=== PATIENT | male | born 1935 | race Caucasian/White ===

== ENCOUNTER 2021-03-31 13:31 | Inpatient (IN) | payer OTHER, BC ==
[~2021-03-31] VITALS: Ht 199.4 cm; Wt 90.4 kg
--- NOTE | ~2021-03-31 | HC ---
[facility] [place] [address] CONSULTATION Name: ROBERTA PORRSA Room #: 517-A [facility] IN .[place].#: [id number] Admission: 03/31/21 Attend Phys: Blossom Franks MD Discharge: Date of : 34 Report #: [id number] THIS REPORT FOR: cc: FAM - Family physician unknown FAM - Family physician unknown Dwayne Sears MD ~ DATE OF SERVICE: 04/11/2021 CHIEF COMPLAINT: Sacral-gluteal pressure injury. HISTORY OF PRESENT ILLNESS: This is an 86-year-old male patient, who was admitted to the geriatric-psych unit with behavioral disturbance. He is not able to provide any information about himself. I have been asked to see him with regard to wound care. PAST MEDICAL HISTORY: Positive for dementia with behavioral disturbance, hypertension and acute on chronic renal failure. MEDICATIONS: Include acetaminophen, benzocaine, ondansetron, ropinirole, lorazepam, nystatin, olanzapine, pantoprazole, hydroxyzine. ALLERGIES: No known drug allergies. SOCIAL HISTORY: Unknown. FAMILY HISTORY: Unknown. REVIEW OF SYSTEMS: Not obtainable due to the patient's level of dementia. PHYSICAL EXAMINATION: VITAL SIGNS: At this time include temperature 96.5, pulse 66, respiratory rate 14, blood pressure 118/72. GENERAL: This is a chronically ill-appearing male patient, who appears to be in no distress. HEENT: Head normocephalic. Nose and throat are clear. LUNGS: Diminished. HEART: Regular rhythm. ABDOMEN: Soft. EXTREMITIES: Examination of the sacral-gluteal region demonstrates a deep tissue injury to the sacral-gluteal region. It is not currently open. CLINICAL IMPRESSION: 1. Deep tissue injury, sacral-gluteal region. 2. Dementia with aggressive behavior. 3. Parkinson's disease. 3. History of subarachnoid hemorrhage. [facility] [address] [place] [address] CONSULTATION Name: ROBERTA PORRAS Room #: 517-A [facility] IN .[place].#: [id number] Admission: 03/31/21 Attend Phys: Blossom Franks MD Discharge: Date of : 34 Report #: [id number] 4. Generalized debility. RECOMMENDATIONS: We will recommend barrier cream and otherwise be left open to air. He will need frequent turns and repositioning every 2 hours and offloading as able. We will recommend a waffle cushion while he is in the chair. Continue with medical management of other underlying medical issues. I appreciate being asked to see him in consultation. By: [id number] Dwayne Sears MD /nt
[2021-03-31] MEDS ORDERED: CARBIDOPA-LEVO1 EAC2 PO (16:42)
[2021-03-31] MEDS ORDERED: BUSPIRONE HCL5 MG PO (16:42)
[2021-03-31] MEDS ORDERED: HYDROCHLOROTH12.5 M2 PO (16:43)
[2021-03-31] MEDS ORDERED: DIFLUCAN100 MG PO (16:43)
[2021-03-31] MEDS ORDERED: HYDROXYZINE HCL25 M2 PO (16:44)
[2021-03-31] MEDS ORDERED: NYSTATIN1000000 UN TOP (16:44)
[2021-03-31] MEDS ORDERED: REQUIP 0.25 M0.25 MG PO (16:45)
--- NOTE | 2021-04-01 01:51 | NUR ---
DUSTIN WAS ADMITTED TO [facility] THE CARE OF DR. TRUJILLO. HE IS ALERT . HE DENIES PAINS. SKIN ASSESSMENT DONE NO OPEN AREAS NOTED. REDNESS AROUND THER GROIN AREA. VITAL SIGN STABLE AT 97.5, 143/87,98%, 88, 16. HE DENIES PAINS, SI/AVH/HI.HE IS INCONTINET OF BOWEL AND BLADDER. NURSE PROVIDED ANNEMARIE CARE ON ARRIVAL. ADMIT MEDS ARE VERIFIED. LUNGS ARE CLEAR , BS ACTIVE X 4 QUADS. LAST BM IS 03/31/21. CALL TO THE HOSPITALIST AND CONSULT ORDER IN PLACE. DUSTIN IS SLEEPING AT THIS TIME. BED IS LOW ALARMED AND LOCKED. PT WT IS 199.4LBS. Q12 MINUTES CHECKS IN PLACE. CONSENT TO TREAT IS OBTAINED FROM THE . CONTINUE CARE AND MONITOR.
[2021-04-01 08:00] VITALS: BP 97/63
[2021-04-01 09:31] VITALS: BP 118/72
--- NOTE | 2021-04-01 10:44 | NUR ---
1045 RESUMMED CARE FROM OVERNIGHT SHIFT THIS AM, PATIENT IN ROOM ASLEEP. WHILE GETTING VITALS PATIENTS BP WAS 97/63; I RETOOK THE BP MANUALLY AND IT WAS 118/72. PATIENTS O2 SAT WAS 70 I DID A STERNUM RUB ON PATIENTS CHEST HE DID NOT FLINCH. WE PUT PATIENT O2 ON THE PATIENT AT 1.5 LITERS AND HIS O2 CAME UP TO 96. PATIENTS PUPILS WERE DILATED WE THEN TRANSFERRED THE PATIENT TO THE CANDY CHAIR. WE ROLLED TO DAY ROOM SO WE CAN MONITOR HIM MORE CLOSELY. AFTER DISCONNECTING THE OXYGEN PATIENTS 02 STAYED IN THE 90'S PATIENT STILL IS SLEEPING IN DAY ROOM. I TOLD RUBEN LUO ABOUT THE PATIENT THIS MORNING I HELD THE AM AND NOON MEDICATION DUE TO PATIENTS BEING SEDATED. PATIENTS ABDOMEN SOFT BOWEL SOUNDS PRESENT, PATIENTS LUNGS CLEAR. PATIENT FINALLY WOKE UP SITTING QUIET WILL CONTINUE TO MONITOR PATIENT FOR SAFETY AND BEHAVIORS. PATIENTS ABDOMEN SOFT BOWEL SOUNDS PRESENT PATIENTS LUNCHES CLEAR TOOK AAP ABDOMEN SOFT BOWEL SOUNDS PRESENT. PATIENTS LUNGS CLEAR PATIENT WAS UNABLE TO TAKE ABOUT SI/HI/AH/VH THIS AM DUE TO BEING SEDATED. WILL CONTINUAL TO MONITOR FOR BEHAVIORS AND SAFETY
[2021-04-01 13:02] LABS: CHOLESTEROL 196 mg/dL (<200); HDL CHOLESTEROL 31 mg/dL (>40); LDL CHOLESTEROL 127 mg/dL (<100); TC:HDL 6.3 Ratio (Not establshd); TRIGLYCERIDE 192 mg/dL (<150); VLDL 38 mg/dL (<40)
[2021-04-01 13:14] LABS: ABSOLUTE NEUTROPHILS 3.8 thou/uL (1.4-8.2); BASOPHILS 0.6 % (0.0-2.0); HEMATOCRIT 45.9 % (42.0-52.0); HEMOGLOBIN 15.3 gm/dL (14.0-18.0); MCH 29.2 pg (26.0-34.0); MCHC 33.4 g/dL (28.0-37.0); MCV 87.7 fL (80.0-100.0); MONOCYTES 9.8 % (1.0-8.0); PLATELET COUNT 272 thou/uL (150-400); POLYS 62.6 % (36.0-66.0); RBC 5.24 mil/uL (4.50-6.00); RDW 13.7 % (10.5-14.5)
[2021-04-01 13:16] LABS: CALCIUM 9.1 mg/dL (8.5-10.1); CREATININE 1.7 mg/dL (0.7-1.3); POTASSIUM 3.7 mmol/L (3.5-5.1)
[2021-04-01 13:23] LABS: ALBUMIN 3.7 g/dL (3.4-5.0); TOTAL BILIRUBIN 0.9 mg/dL (0.2-1.0); TOTAL PROTEIN 7.5 g/dL (6.4-8.2)
[2021-04-01 13:26] LABS: FOLIC ACID 10.5 ng/mL (8.6-58.9)
[2021-04-01 16:01] VITALS: BP 118/72
[2021-04-01 19:17] VITALS: BP 111/73
--- NOTE | 2021-04-02 02:46 | NUR ---
04-01-21 CARE TRANSFERRED 1899 OBSERVED PT RESTING IN RECLINER WITH EYES CLOSED IN DAY ROOM. LATER PT EASILY AWAKEN TO VOICE, PT DROWSY, CALM AND COOPERATIVE. PT VSS, RR EVEN AND NONLABORED ON RA, PT DENIES PAIN AND NO S/S OF PAIN OBSERVED. PT DENIES SI/HI AND NO SI/HI BEHAVIORS NOTED. PT CONFUSED AND REPORTED HE WAS MEETING HIS LATER. PT HAS REMAINED CALM AND COOPERATIVE. LATER PT ASSISTED, HEAVY BRIEF YELLOW URINE, NOTED REDNESS IN PERIAREA, CLEANED WITH SOAP AND WATER, BARRIER CREAM APPLIED. PT BED WAS ADJUSTED FOR COMFORT, LOWEST POSITION, LOCKED AND ALARM ON. LATER PT RESTLESS AND PT WAS BROUGHT TO DAY ROOM IN RECLINER WITH CHAIR ALARM ON. PT WILL CONTINUE TO BE MONITOR PER [facility] PROTOCOL.
[2021-04-02 05:36] LABS: GLYCOHEMOGLOBIN (HGB A1C) 6.3 % (4.8-5.6)
[2021-04-02 09:10] VITALS: BP 128/80
--- NOTE | 2021-04-02 14:17 | NUR ---
SILVESTRE spoke with pt's and DPOA Katerina concerning pt's background hx. She said that pt and she have been 63 years. 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 Pt does have [place] benefits. Pt's also notes that he has a strong josue in [place]. Pt currently lives with his , but she has identified a few options for placement should the be needed. Her ideal is for pt to return home if he can be managed there, but she noted several times that she wants to do whatever is best for the pt. She gave a verbal okay for both Yumiko and Rahat to receive information. SILVESTRE advised there may be some information staff cannot give them as she is pt's current dpoa, and also they will not be able to take decision making from them; they must take advisement from Katerina. She said she understood. She asked that pt's welcome email be sent to both Rahat at [email or web address] and candie at [email or web address]. SILVESTRE emailed a [facility] welcome to both people. SILVESTRE team will continue to follow pt during his stay on this unit.
--- NOTE | 2021-04-02 18:28 | NUR ---
SITTING IN DAYROOM IN [facility] UPON INITIAL ASSESSMENT THIS AM-STARES INTENTLY AT THIS NURSE DURING AM ASSESSMENT BUT OFFERS FEW VERBAL RESPONSES-WHEN DOES RESPOND DIFFICULT TO UNDERSTAND SPEECH IS SOFT,MUMBLED.DID EAT BREAKFAST WITH ASSIST AND TAKES PO MEDS CRUSHED IN PUDDING. [id number] FACIAL EXPRESSION-VERY RESTLESS AFTER BREAKFAST DESPITE INCONTINENT CARE AND ADMINISTRATION OF PO TYLENOL IN CASE EXPERIENCING PAIN-PROVIDED SENSORY BRIDGET AND BALL AND SENSORY PILLOW TO OCCUPY HANDS-PSYCHOMOTOR AGITATION-DID BEAM DYER OPERATOR SENSORY OBJECTS BRIEFLY-ATTEMPTED TO STAND SEVERAL TIMES-REQUIRES MAX ASSIST X3 NURSES TO STAND-HOWEVER IS INSISTING THAT HE IS "GOING" BEGAN TO STRIKE OUT AT DENTAL SERVICE TECHNICIAN'S WHO WERE ATTEMPTING TO ASSIST HIM BACK TO SITTING POSITION IN [id number] TO GRAB,PINCH AND KICK AT STAFF-ATIVAN 0.5MG GIVEN IM IN RIGHT DELTOID AT 1100- WAS NOTABLY LESS RESTLESS AFTER MATIVAN ADMINISTRATION-ABLE TO LOOK AT NEWSPAPER AND LISTEN TO MUSIC -ATE APPROX 75 PERCENT OF LUNCH. DURING 1300 INCONTINENT CARE FOUND TO HAVE BEEN INCONTINENT OF LARGE AMOUNT SOFT LIGHT BROWN STOOL-COMBATIVE WITH INCONTINENT CARE-REQUIRING ASSIST X 4 STAFF TO CLEANSE BM OFF OF TORSO,LEGS,BACK ETC. SETTLED IN BED FOR PM NAP HAD NO SLEEP LAST NIGHT -AT 1530-ALERTED BY DENTAL SERVICE TECHNICIAN THAT VEARL WAS SOMULENT AND DID NOT INITIALLY RESPOND TO VERBAL COMMAND-REQUIRED STERNAL RUB. WAS ALERT WITH EYES OPEN LYING IN BED TAKING OFF SICKS WHEN THIS NURSE ENTERED ROOM TO ASSESS. MUMBLING INCOHERENTLY TO SELF. DENIES PAIN. SKIN WARM/DRY. 02 SAT 97 PERCENT ON RA-BP 144/70-P68 R-12. DARIO. GRIBS STRONG EQUAL BILAT, THIS NURSE AT BEDSIDE [id number] TO ASSESS FOR APNIC EPISODES OR ANY NEUROLOGIC CHANGES. DR. LY CONTACTED RE ABOVE-O RECEIVED FOR CT OF HRAD. CONTINUES HIGH FALLS RISK
[2021-04-02 19:34] VITALS: BP 130/74
[2021-04-02 20:00] VITALS: BP 130/74
--- NOTE | 2021-04-03 00:02 | NUR ---
PATINET CARE WAS RESUMED AT 1900 AND HE WAS AT [facility] DINING AREA . HE IS ALERT AND UNABLE TO VERBALIZE HIS NEEDS. HE DENIES PAINS. NO SI/AVH/HI NOTED AT THIS TIME. HE IS INCONTINIET OF BOWEL AND BLADDER. LUNGS ARE CLEAR BS ACTIVE 4 X QUADS. MEDS WERE GIVEN IN APPLE SAUCE. ANNEMARIE CARE WAS PROVIDED AND HE IS RESTING IN BED. ALARM IS ACTIVATED, BED IS LOW, LOCKED AND Q 12MINUES CHECKES IS ONGOING. CONTINUE CARE AND MONITOR.
[2021-04-03 05:43] LABS: ABSOLUTE NEUTROPHILS 3.7 thou/uL (1.4-8.2); BASOPHILS 0.5 % (0.0-2.0); EOSINOPHILS 2.7 % (0.0-3.0); HEMOGLOBIN 13.9 gm/dL (14.0-18.0); LYMPHOCYTES 25.5 % (24.0-44.0); MCH 29.5 pg (26.0-34.0); MCHC 33.8 g/dL (28.0-37.0); MCV 87.4 fL (80.0-100.0); MONOCYTES 13.3 % (1.0-8.0); PLATELET COUNT 246 thou/uL (150-400); RDW 13.7 % (10.5-14.5); WBC 6.3 thou/uL (4.0-11.0)
[2021-04-03 05:50] LABS: CALCIUM 8.9 mg/dL (8.5-10.1); CREATININE 1.9 mg/dL (0.7-1.3); MAGNESIUM 2.2 mg/dL (1.8-2.4); POTASSIUM 3.2 mmol/L (3.5-5.1)
[2021-04-03 08:43] VITALS: BP 107/55
[2021-04-03 08:49] VITALS: BP 107/55
--- NOTE | 2021-04-03 10:03 | NUR ---
New admit to [facility] with dementia and agressive behavior. Hx Parkinson, subarachnoid hemorrhage, dementia. Eating 90-100% of most meals so far. Wt status appropriate. Note triglycerides 192, LDL 127, HDL 31. A1C is 6.3, B12 416, folate wnl. Otherwise low nutrition risk and will follow intake and wt trends while admitted.
--- NOTE | 2021-04-03 12:41 | NUR ---
1248 RESUMMED CARE FROM OVERNIGHT SHIFT THIS AM, PATIENT IN ROOM SLEEPING DEEPLY. PATIENT DID NOT RESPOND TO ME TRYING TO GET UP PATIENT DID NOT EAT HIS BREAKFAST. I DID NOT GIVE HIM HIS AM MEDICATION UNTIL 1115 AM, DR RAMIREZ CHANGED HIS SEROQUEL TO LATER IN THE DAY AND HS. PATIENTS ABDOMEN SOFT BOWEL SOUNDS PATIENTS LUNGS CLEAR. PATIENT UNABLE TO TELL ME ABOUT SI/HI/AH/VH DUE TO COGNIIVE DO. PATIENT SLEEPING ON AND OFF DURING SHIFT NON VERBAL WITH STAFF. WILL CONTINUE TO MONITOR PATIENT FOR SAFETY AND BEHAVIORS.
--- NOTE | 2021-04-03 16:58 | NUR ---
@[address] Daniel participated in a phone meeting with the Pt , Katerina Mehta, . An update on the Pt was given Medications was discussed. Dr. Goldstein provided education on dementia progression. Katerina informed that the Pt was given ativan before and it had and over sedating affect on the Pt prior. Dr. Daniel informed that we would call the family back in 24hr with update on the Pt's progress. This will give time for better assessment of the Pt's condition and to make a determination if Pt in need of hospice house. This was explained to Katerina. A zoom visit was scheduled for 04/04/2021 @ 1100. Silva will continue to follow
[2021-04-03 19:49] VITALS: BP 161/78
[2021-04-03 20:00] VITALS: BP 161/78
--- NOTE | 2021-04-03 22:11 | NUR ---
PATIENT IS ALERT AND ORIENTED TO SELF. MAX ASSIT WITH CARE.HE IS INCONTINET F BOWEL AND BALDDER. ANNEMARIE-CARE IS PROVIDED. ABD IS SOFT MODERATE SIZED AND NNE TENDER. HE DENIES PAINS. MEDS ARE GIVEN IN APPLE SAUCE. CALL FROM SPOUSE AND PATIENT SPOKE WITH HER. HE AMBULATES WITH CANDY-CHAIR. BED IS LOW, LOCK AND ALARMED. LUNGS ARE CLEAR . NO BEHAVOIR NOTED THIS SHIFT. Q 12MINUTES CHECKES IN ONGOING, CONTINUE CARE AND MONITOR.
[2021-04-04 09:26] VITALS: BP 135/67
--- NOTE | 2021-04-04 13:05 | NUR ---
Alert and orientated to self only. Denies SI/HI. Able to read names out of magazine spontaneously. Calm and cooperative all AM and initially cooperative when changing brief but became resistant when he needed to be changed 2nd time right after the first. Able to stand with assistance and walk approximately 10 steps, gait unsteady. Saw family over zoom and stated son looked like his father, no other conversation with family. Became threatening and slightly combative at lunch wanting to stand. Compliant with meds crushed in apple sauce. Now dozing off at times. Breath sounds clear. Reg HR auscultated. Color pink with brisk capillary refill and palpable peripheral pulses. No edema. Large, soft brown stool per brief X 2. Active bowel sounds over soft, rounded abdomen. Buttocks and inguinal spaces slightly reddened. Cleaned and nystatin, barrier cream applied. Several scrapes on shins, no s/o infection.
--- NOTE | 2021-04-04 14:28 | NUR ---
Pt participated in a family visit via zoom. The visit was about 10 mins. Pt did not seeam to recognize his family. Pt believed it was his mother and father, however the family on the zoom was his and children. Visit was ended due to Pt needed toileting.
--- NOTE | 2021-04-04 15:34 | NUR ---
SILVESTRE and Dr. Daniel participated in a phone call with the Pt family. Katerina, Rahat, and Yumiko were on the phone call. Dr. Daniel gave a recommendation for memory care. The family was asked to provide at least 3 facilities they would like a referral sent to. Medications were also discussed. Katerina had questions concerning Pt recieving physical therapy. Dr. Cleaning explained that at this time the Pt's cognitive impairment would prevent him from participating however PT can be ordered if Pt's cognition improves. The family had no further questions or concerns. SILVESTRE will continue to follow.
[2021-04-04 18:35] VITALS: BP 164/84
[2021-04-04 19:43] VITALS: BP 155/73
--- NOTE | 2021-04-04 22:25 | NUR ---
PATIENT CARE WAS RESUMED AT 1900. HE WAS SITTING ON CANDY-CHAIR IN THE HALLWAY. HE IS ALERT AND ORIENTED. HE SPOKE ON THE PHONE WITH THE THIS EVENING. TOOK HIS MED IN APPLE SAUCE. HE DENIES PAINS,SI/AVH/HI. BOWEL SOUND IS ACTIVE X 4 QUADS.PATIENT IS IN BED AT THIS TIME AND BED IS LOW, ALARMED, LOCKED.HE IS INCONTINENT OF BOWEL AND BLADDER.YELLOW SOCK AND TOP ARE ON.MAX ASSIST WITH TRANSFER AND ANNEMARIE-CARE. Q 12MINS CHECK ONGOING AND CONTINUE TO MONITOR.
[2021-04-05 09:06] VITALS: BP 136/55
--- NOTE | 2021-04-05 19:56 | NUR ---
HAS BEEN VISIBLE IN DAYROOM SITTING IN GERICHAIR-MINIMALLY VERBAL-AFFECT CONSTRICTED -NOT RESTLESS NOTED ON PREVIOUS SHIFTS-DID BECOME MILDLY AGITATED WITH INCONTINENT CARE-REQUIRES 2-3 HE GRABS AT BRIEF AND WILL NOT LET GO. ATTEMPTS TO FEED SELF BUT DOES REQUIRE ASSIST. TRANSFERS AND AMBULATES WITH ASSIST OF 1-2 STAFF-GAIT VERY UNSTEADY. NO NOTED OR REPORTED PAIN
[2021-04-05 20:10] VITALS: BP 115/70
--- NOTE | 2021-04-06 00:24 | NUR ---
PATIENT CARE RESUMED AT 1900, PATIENT IN GERICHAIR IN DAY ROOM AT THAT TIME. MEDS GIVEN CRUSHED IN ICE CREAM WITHOUT DIFFICULTY. PATIENT ASSISTED TO BED X 2 ASSIST WITH TRANSFER AND PERICARE, DID HAVE SOME RESISTANCE TO CARE THOUGH MANAGEABLE. PATIENT IS MINIMALLY VERBAL WITH ASSESSMENT QUESTIONS AND DOES NOT ANSWER APPROPRIATELY. PATIENT CURRENTLY LYING IN BED WITH EYES CLOSED, RESTING QUIETLY.
--- NOTE | 2021-04-06 08:28 | NUR ---
RT Progress Note- Paul has been present in the milieu each day since his admission. He keeps to himself, and does not communicate much, but is observed to make eye contact and listen closely when interacted with directly. Paul has been able to be present in most recreation therapy groups as a passive participant and has not displayed any agitated or aggressive behaviors while doing so. RT team will continue to encourage presence and progress towards goals.
[2021-04-06 09:21] VITALS: BP 110/63
--- NOTE | 2021-04-06 10:38 | NUR ---
Referral faxed to the Following: [facility]
--- NOTE | 2021-04-06 14:35 | NUR ---
Assumed pt care at 0700. Pt was awake in the day room. Pt was oriented to self. Gordyie si/hi. pt is on a scheduled tylenol. Pt took meds crushed in pudding, no difficulty noted. ambulates with a Briseida chair. pt was assisted with all meals. Pt was calm cooperative with care. INCONTINENT X3 AT THIS TIME. No bowel movement noted at this time. No sign of acute distress noted. Pt is currently seated in the day room. WILL CONTINUE TO MONITOR.
[2021-04-06 16:21] VITALS: BP 108/70
[2021-04-06 19:50] VITALS: BP 108/70
--- NOTE | 2021-04-07 02:10 | NUR ---
PATIENT CARE WAS RESUMED AT 1900. HE IS ALERT AND WAS SITTING IN THE HALLWAY O RECLINER. HE SPOKE WITH SPOSE THIS SHIFT. DENIES PAINS,SI/AVH/HI. HE TOOK HIS MEDS IN A PUDDING.VERBALIZES SOME DISCOMFORT.HE AMBULATES WITH CANDY-CHAIR, SHE NEED ASSISTANCE WITH ANNEMARIE-CARE. LUNGS ARE CLEAR BS ACTIVE X 4 QUADS. INCONTINET OF BOWEL AND BLADDER. BED IS LOW, LOCKED AND ALARMED. Q 12 MINUTES CHECK IS ONGOING.
[2021-04-07 09:37] VITALS: BP 127/64
--- NOTE | 2021-04-07 17:30 | NUR ---
SW followed up on the referrals: [facility]- declined due to no beds [facility]- cant meet need due to Pt's behaviors and they dont have a locked unit. [facility]- Left a message for admissions and DON. no call back as of this note. [facility]-recieved a call from [facility], . SW returned call and left a message. No call back as of this note [facility]- will accept the Pt. However they have hesitations due to the family only wanting temprary placement until the are able to get placement in [place], [place]. SW will continue to follow up.
[2021-04-07 19:18] VITALS: BP 125/72
[2021-04-07 20:00] VITALS: BP 125/72
[2021-04-08 09:41] VITALS: BP 131/60
--- NOTE | 2021-04-08 09:52 | NUR ---
Assumed pt care at 0700. pt was in the day room resting. Oriented to self, confused. Lungs clear on auscultation, active bowel sound. Calm and cooperative with care. No sign of si/hi noted, pt is on a scheduled pain meds. No sign acute distress noted upon assessments. Took meds crushed in ice cream, no difficulty noted. AMbulates with a Briseida chair. pt is a moderate to mAX assist with cares. At this time pt is in the day room awake. Will continue to monitor pt.
[2021-04-08 20:26] VITALS: BP 139/80
[2021-04-09 00:21] VITALS: BP 139/80
--- NOTE | 2021-04-09 02:55 | NUR ---
04/08/21 - Pt is alert to person only, sitting in day room in G chair, very impulsive and wanting to get up out of chair. Pt assessed for comfort and he wanted to go to bed. Assist to bed x 2. Pt affect is pleasant, took medications crushed with ice cream. Pt gets impulsive but he is easy to redirect. Follows one step commands. Denies SI/HI/AH/VH. [facility] protocol monitoring.
--- NOTE | 2021-04-09 10:49 | NUR ---
PATIENT CARE ASSUMED 0700, SLEEPING IN BED, HE IS A MAX ASSIST, TOOK THREE STAFF TO GET HIM CLEAN UP AND READY FOR THE DAY, HE WAS NOT COOPERATIVE, ALERT AND DISORIENTED, ATE BREAFAST, TOOK HIS MEDICATION WITH ICE CREAM, ASSESSMENT COMPLETED, ACTIVE BOWEL SOUND, LUNGS CLEAR,BLOOD PRESSURE 109/58,67,18,98.0,94 INCONTINENT OF BOWEL AND BLADDER, AMBULATE ON THE CANDY CHAIR, HE DENIES SI/HI/AVH. WILL CONTINUE TO MONITOR.
[2021-04-09 19:16] VITALS: BP 165/72
[2021-04-09 19:50] VITALS: BP 165/72
--- NOTE | 2021-04-10 09:32 | NUR ---
Followup: remains on [facility] unit. continues to eat 90-100% of meals. No new to assess. BMI 22. Remains low nutrition risk
[2021-04-10 09:42] VITALS: BP 133/77
--- NOTE | 2021-04-10 12:24 | NUR ---
SILVESTRE spoke with Latoya and Catherine concerning facilites that have denied the Pt. Silvestre also informed that [facility] is considering and has requested updates. Also [facility] is considering. Catherine requested referral be sent to [facility]. SILVESTRE faxed updates the [place] and sent referral to [facility] as requested. SILVESTRE will continue to follow
--- NOTE | 2021-04-10 13:51 | NUR ---
PT ALERT TO SELF ONLY. CALM AND COOPERATIVE THIS MORNING. VSS. PT TOLERATES MEDS AND MEALS. PT HAS LITTLE INTERACTION WITH STAFF AND PEERS. WILL CONTINUE TO MONITOR.
[2021-04-10 20:08] VITALS: BP 114/74
--- NOTE | 2021-04-11 05:04 | NUR ---
PATIENT CARE WAS RESUNED AT 1900. HE WAS IN BED. ALERT AND CONFUSED. ABLE TO VERABALIZE SOME NEEDS. LUNGS ARE CLEAR BS ACTIVE X 4 QUADS. MAX ASSIT WITH CARE. INCONTINENT OF BOWEL AND BLADDER. MED GIVEN , AND PATINET IS REPOSITIONED Q 2 HOURLY. ANNEMARIE CARE IS PROVIDED AND HE IS BED WITH YELLOW ANTOP AND SOCKS. BED IS LOW, ALARMED AND LOCKED. HE DENIES SI/AVH/HI. Q 12MINUTES CHECKS IS ONGOING CONTINUE CARE.
[2021-04-11 09:23] VITALS: BP 123/88
--- NOTE | 2021-04-11 13:37 | NUR ---
WOUND CONSULT; A BRUISE WAS IDENTIFIED BY THE RN TODAY TO THE COCCYX. UPON PHYSICAL ASSESSMENT THE BRUISE VS DEEP TISSUE INJURY WAS CONFIRMED MEASURING 2 X 2 X 0 AT THIS TIME. NO DRAINAGE. THE AREA WAS ASSESSED TODAY WITH THE RN AND MYSELF. THE RN IS USING BARRIER CREAMS AND OFFLOADING MUCH POSSIBLE.
--- NOTE | 2021-04-11 13:47 | NUR ---
[facility]- declined Pt due to not having staffing to иван Pt's behaviors. [facility]: Is considering Pt and ask SW to fax last 72hours of notes. SW complied with this request. SW will follow up
--- NOTE | 2021-04-11 14:14 | NUR ---
Referral sent to [facility] and [facility]
--- NOTE | 2021-04-11 14:27 | NUR ---
PT ALERT TO SELF ONLY. VSS. PT DOES NOT ANSWER ANY ASSESSMENT QUESTIONS. PT TOLERATES MEDS AND MEALS. PT CINDER BLOCK MAKER LITTLE INTERACTOIN WITH STAFF AND PEERS. PT DID ATTEND GROUPS THIS SHIFT. WILL CONTINUE TO MONITOR.
[2021-04-11 19:58] VITALS: BP 136/63
[2021-04-11 20:00] VITALS: BP 136/63
--- NOTE | 2021-04-12 04:19 | NUR ---
PATINET CARE WAS RESUMED AT 1900. HE IS ALERT AND WAS IN THE DINNING AREA SITTING ON THE RECLINER. HE IS ABLE TO VERBALIZE SOOME NEEDS. LUNGSRA E CLEAR BS ACTIVE X 4 QUAD. HE IS INCONTINENT OF BOWEL AND BLADDER. HE TOOK MED , Q 2 HOURLY CHECK AND REPOSTIONED. HE DENIES AIND/SI/AVH /HI. HE IS ON YELLOW TOP AND NON SKID SOCKS. BED IS LOW. ALARMED AND LOCKED. ANNEMARIE CARE IS PROVIDED AND CREAM APPLIED TO HIS COCCYX AREA OER ORDER. CONTINUE CARE
[2021-04-12 10:26] VITALS: BP 129/83
--- NOTE | 2021-04-12 14:59 | NUR ---
SILVESTRE recieved a call from Vivien at [facility]. Vivien stated she has spoken with the family they are wanting to place the Pt at the facility. Vivien stated she can't accept the Pt until Saturday due to staffing issues. SILVESTRE will continue to follow
[2021-04-12 15:45] LABS: ALBUMIN 3.4 g/dL (3.4-5.0); CALCIUM 8.7 mg/dL (8.5-10.1); CREATININE 1.4 mg/dL (0.7-1.3); PHOSPHORUS 3.5 mg/dL (2.6-4.7)
--- NOTE | 2021-04-12 16:32 | NUR ---
PATIENT WAS UP IN GERICHAIR SITTING IN DAY ROOM WHEN CARE ASSUMED. PATIENT TOOK ALL MORNING MEDICATION CRUSHED IN ICECREAM, WELL TOLERATED. PATIENT IS EATING MEALS, AND DRINKING FLUID WELL WITH ASSIST OF STAFF. PATIENT DENIES SUICIDAL DIEATION, NOT ABLE TO APPROPRIATELY RESPOND TO FURTHER ASSESSMENT QUESTIONS DUE TO COGNITIVE IMPAIRMENT. PATIENT OBSERVED TALKING TO SELF, AND UNSEEN OTHERS. PATIENT REPOSITIONED ORDERED, HE HAD A LARGE SOFT BOWEL MOVEMENT THIS AFTERNOON, GOOD PERICARE PROVIDED, CREAM APPLIED TO COCCYX AREA, LEFT OPEN TO AIR PER ORDER. PATIENT IS CALM, GETS IRRITABLE WITH INCONTINENT CARE, BUT REDIRECTABLE. PATIENT IS CURRENTLY IN BED RESTING. NO SIGN OF ACUTE DISTRESS NOTED AT THIS TIME, WILL MONITOR FOR SAFETY.
[2021-04-12 19:26] VITALS: BP 105/69
[2021-04-12 20:10] VITALS: BP 105/69
--- NOTE | 2021-04-13 03:36 | NUR ---
PATIENT HAS BEEN IN BED SINCE 190 WHEN ASSUMED CARE OF PATIENT. HE HAS BEEN CALM AND QUIET TONIGHT. HE WAS DROWSY AND TOOK SOME EFFORT IN GIVING HIM HIS HS MED CRUSHED IN ICECREAM. HAVE NOT BEEN ABLE TO GET FLUIDS DOWN HIM THIS EVENING D/T SLEEPINESS. PT HAS SO FAR NOT VOIDED THIS SHIFT. WOUND ON COCCYX CLEANED WITH NS AND BARRIER CREAM APPLIED AND LEFT TANNING SOLUTION MAKER. PATIENT POSITIONED FOR COMFORT. BILATERAL TIPS OF TOES RED AND WARM. UNSURE IF CELLULITIS. BED IN LOW POSITION AND BED ALARM IS ON. ROUTINE ROUNDS FOR COMFORT POSITIONING, INCONTINENCE CHECKS AND STATUS AND SAFETY CHECKS.
[2021-04-13 11:01] VITALS: BP 131/69
--- NOTE | 2021-04-13 11:09 | NUR ---
RT Progress Note- Paul remains present in the milieu each day. He also remains a passive participant to recreation therapy groups as he does not engage. Paul has not displayed agitated or aggressive behaviors during RT interaction and is able to maintain short and simple conversation when spoken to 1;1. STOGIE PACKER will continue to encourage patient progress towards goals.
--- NOTE | 2021-04-13 14:47 | NUR ---
Alert and orientated to name only. Interactive with staff but deliberately spitting out meds. Took meds on 3rd approach this AM, spit out tylenol around noon and then took med on 3rd approach after spitting out initially at 1500. Breath sounds clear. Reg HR auscultated. Color pink with brisk capillary refill and palpable peripheral pulses. Brief dry this AM. Buttocks reddened with small ulcers near coccyx. Cleaned with NS and zpaste applied. Active bowel sounds over soft, rounded abdomen. Able to stand with assistance but does not ambulate.
[2021-04-13 20:03] VITALS: BP 152/76
--- NOTE | 2021-04-14 03:11 | NUR ---
ASSUMED CARE AT 1900, PATIENT UPRIGHT IN GERICHAIR SITTING AT TABLE. TOOK MEDS CRUSHED IN ICE CREAM WITH SOME RESISTANCE. DID NOT ANSWER ANY ASSESSMENT QUESTIONS. INCONTINANT OF LARGE BM. SOME RESISTANCE WITH ANNEMARIE CARE. WOUND CARE OF NS AND BARRIER CREAM APPLIED TO SMALL WOUNDS ON COCCYX. PLACED IN BED APPROX 2200 TO RIGHT SIDE. Q2H TURNS, Q12 MINUTE SAFETY CHECKS AND HOURLY ROUNDING FOR HIGH FALL RISK.
[2021-04-14 09:20] VITALS: BP 145/73
--- NOTE | 2021-04-14 11:03 | NUR ---
04/13/2021 SILVESTRE spoke with the family concerning discharge to [facility]. Katerina confirmed this placement. SILVESTRE informed Pt would discharge 04/17/2021 @0900. Katerina inquired about transporting the Pt with the assistance of family. SILVESTRE informed that due to the Pt's decline it would be unsafe for the family to transport to [facility], However medical transportation would be set up for the Pt. There were no other questions or concerns at this time. D/C 04/17/2021 @ 0900. Pt will be transported via [facility] by [employer] [facility]. Updates were faxed to [facility].
--- NOTE | 2021-04-14 11:09 | NUR ---
Spoke to GAMALIEL, Katerina - requested that phone calls to the unit be made on a limited basis - i.e. one person per day calling to speak with patient and get update. Explained that numerous calls per day to the nurse takes away from patient care. Katerina was very understanding and will speak to family. They will take turns calling the unit on a daily basis. Thanked her for her understanding.
--- NOTE | 2021-04-14 15:35 | NUR ---
Alert and orientated X1. Calm when left alone, but combative with cares. Took AM meds without difficulty but refused 1500 meds spitting on 3rd approach. Denies SI/HI. Placed in bed after lunch to decrease pressure on ulcers. Breath sounds clear. Reg HR auscultated. Color pink with brisk capillary refill and palpable peripheral pulses. Incontinent of large amt yellow urine per brief/pad. Small stool per brief. Active bowel sounds over soft, rounded abdomen. Able to stand and take a few steps. Resistant to repositioning in chair. When lifted to place extra cushion with assist x 2 he purposefully sat on floor. Two ulcers between buttocks, cleaned with NS and Zpaste applied. Scrotum and inguinal areas reddened, cleaned and nystatin cream applied per verbal order from Dr. Cleaning. Currently resting in bed without s/o distress.
[2021-04-14 19:31] VITALS: BP 137/89
--- NOTE | 2021-04-15 02:00 | NUR ---
PATIENT REFUSED HS MEDICATIONS THIS EVENING, TIGHTENED LIPS AND REFUSED TO OPEN THEM. DOES NOT ANSWER ASSESSMENT QUESTIONS, JUST LOOKED AT THIS CATHODE RAY TUBE ASSEMBLER WITH LIPS PRESSED TIGHT. PATIENT CALM, DOES BECOME RESISTANT WITH CARES, MAINLY HOLDING ONTO HIS PANTS/BRIEF OR SHEET. WOUNDS ON BUTTOCKS CLEANED WITH WOUND CLEANSER, PASTE APPLIED. NYSTATIN APPLIED TO REDDENED AREAS AROUND GROIN. CONTINUES ON FALL PRECAUTIONS AND Q12 MINUTE SAFETY CHECKS.
[2021-04-15 09:06] VITALS: BP 138/67
--- NOTE | 2021-04-15 11:35 | NUR ---
1125 PT REFUSED TO TAKE 100 MG SEROQUEL PRESCRIBED. PT STATED THAT SHE ONLY TAKES SEROQUEL AT 11 O'CLOCK AT NIGHT.
--- NOTE | 2021-04-15 13:44 | NUR ---
Alert and orientated to name only. Denies SI/HI, no behaviors suggestive of SI/HI. Compliant with meds given whole in ice cream. Calm when sitting in chair or in bed but becomes combative with cares. Breath sounds clear. Reg HR auscultated. Color pink with brisk capillary refill and palpable peripheral pulses. No edema noted. Incontinent of yellow urine X2 and small brown stool. Active bowel sounds over soft, rounded abdomen. Skin reddened in inguianal folds, improved from yesterday. Cleaned and nystatin cream applied. 2 one cm ulcers between buttocks, slightly improved since yesterday. Cleaned with NS and thick layer of Zguard applied. Able to bear wt with transfers but resistant to move between bed and chair. Up in chair with WC cushion until 1145, then placed in bed and placed on side. Currently sleeping without s/o distress.
[2021-04-15 19:44] VITALS: BP 130/78
--- NOTE | 2021-04-15 21:36 | NUR ---
PATIENT CARE RESUMED AT 1900. PATIENT IN CANDY CHAIR IN DAY AREA AT THAT TIME. COMPLIANT WITH MED PASS. NO S/S OF DISTRESS OR DISCOMFORT. ASSIST X 2 TO BED, WEAK WITH TRANSFERS. INCONTINENT OF BOWEL AND BLADDER, PROVIDED ANNEMARIE CARE, WOUND CARE TO COCCYX PROVIDED. SOME RESISTANCE WITH CARES, OTHERWISE CALM AND PLEASANT. ALERT TO SELF ONLY. CONTINUES ON FALL PRECAUTIONS, Q2H TURNS, AND Q12 MINUTE SAFETY CHECKS.
[2021-04-16 09:13] VITALS: BP 129/84
--- NOTE | 2021-04-16 10:10 | NUR ---
RESISTIVE WITH TAKING AM MEDICATIONS CRUSHED IN PUDDING EVENTUALLY DID OPEN MOUTH AND TOOK LARGE BITE-AFTER SWALLOWING DEPAKOTE SPRINKLES MADE FACE AND STARTED TO SPIT OUT-DID APPEAR TO GET MAJORITY OF MEDICATION . INCONTINENT OF LARGE AMOUNT SOFT BROWN BM-REQUIRES ASSIST OF 3-4 STAFF TO COMPLETE SKIN CARE/WOUND CARE AND POSITIONING D/T COMBATIVE BEHAVIOR.DOES REQUIRE ASSIST WITH ALL ADLS INCLUDING EATING. MOSTLY [id number] 1-2 WORD RESPONSES GIVEN TO QUESTIONS ASKED. SKIN W/D. LUNGS CLEAR-NO S/S OF PAIN. POSITION CHANGE Q 2 PER PROTOCOL TO MINIMIZE PRESSUE TO COCYX 2
--- NOTE | 2021-04-16 12:11 | NUR ---
Fax sent to Amber Aguayo - Updates for pt.
--- NOTE | 2021-04-16 18:24 | NUR ---
REPOSITIONED IN BED Q2HR THIS PM-PLACED IN BED AT APPROX 1200-WEDGE USED TO REPOSITON OFF COCYX-APPEARED TO REST QUIETLY UNTIL APPROX 1400 WHEN BED EXIT ALARM SOUNDED -FOUND SITTING IN MIDDLE OF BED WITH LEGS DRAPED OVER TOP BED RAIL-INCONTINENT OF LARGE LOOSE STOOL -NOTED TO BE HOLDING IN HAND LARGE AMOUNT SOLID FECES-ALSO HAD RUBBED FECES ON WALL -BEDRAILS AND WAS RUBBING IN HAIR-COMPLETE BED BATH AND LINEN CHANGE COMPLETED-CONTINUES TO OOZE LOOSE STOOL-BARRIER CREAM APPLIED-UP OUT OF BED FOR SUPPER -INCREASE IN VERBALIZATION/LESS RESISTIVE WITH CARES AND MORE ACTIVE IN FEEDING SELF-STANDING BETTER FOR TRANSFERS AND INCONTINET CARE. DENIES C/O PAIN. SOME MILD AGITATION WITH INCONTINET CARE OTHERWISE COOPERATIVE
[2021-04-16 19:28] VITALS: BP 140/85
--- NOTE | 2021-04-17 00:22 | NUR ---
PATIENT WAS SITTING UP IN GERIRECLINER AT A TABLE AT BEGINNING OF SHIFT. HE WAS CALM AND HOLDING A PHONE TO HIS EAR AND SPOKE EVERY ONCE IN A WHILE. MOMENTS LATER I SAW PATIENT WITH PHONE TO HIS EAR AND SAYING NOTHING FOR AWHILE. I WENT AND REMOVED THE PHONE AND NO ONE WAS ON THE PHONE. THEY HAD HUNG UP. PATIENT SEEMED MORE ALERT TONIGHT AND WAS SMILING AND CONTENT. PATIENT TOOK HIS MEDS CRUSHED IN ICECREAM. HE HAD LARGE BM THIS EVENING. PRESSURE WOUND AT COCCYX WAS CLEANED AND BARRIER CREAM APPLIED. PATIENT POSITIONED ON HIS RIGHT SIDE BUT ROLLS BACK TO HIS BACK FOR COMFORT. DENIES PAIN. NO SIGNS OF SI/HI/AVH. PATIENT IS LUMMI. BED IN LOW POSITION AND BED ALARM IS ON. HEELS ELEVATED. ROUTINE ROUNDS TO ASSESS SAFETY AND STATUS OF PATIENT.
[2021-04-17] MEDS ORDERED: SEROQUEL 25 MG25 M1 PO (08:08)
[2021-04-17] MEDS ORDERED: REQUIP 1 MG TABL1 M1 PO (08:13)
[2021-04-17] MEDS ORDERED: MIRALAX17 GM PO (08:14)
[2021-04-17] MEDS ORDERED: NYSTATIN-TRIAMC15 GM TOP (08:15)
[2021-04-17] MEDS ORDERED: PROTONIX40 M4 PO (08:18)
[2021-04-17 09:37] VITALS: BP 150/80
--- NOTE | 2021-04-17 12:02 | NUR ---
PERSONAL BELONGINGS INVENTORIED AND SENT WITH PATIENT. IMCONTINENT CARE,ORAL CARE AND SHAVE PROVIDED-BARRIER CREAM APPLIED TO COCYX PER ORDER, NEW BRIEF PUT ON -CLOTHING CHANGED. GARY PORRAS CONTACTED VIA PHONE AND DC MEDICATIONS,RECOMENDATIONS FOR F/U ON DC REVIEWED WITH -SHE DENIES QUESTIONS/CONCERNS. [phone] PT DISCHARGED VIA MED [employer] [facility] VIA CART AT APPROX. 0920-ALERT AND VERBAL AT TIME OF DC
--- NOTE | 2021-04-18 20:32 | D ---
[facility] [place] [address] DISCHARGE SUMMARY Name: ROBERTA PORRAS Room #: 517-[facility] M.R.#: [id number] Admission: 03/31/21 Attend Phys: Blossom Franks MD Discharge: 04/17/21 Date of : 33 Report #: [id number] THIS REPORT FOR: cc: FAM - Family physician unknown FAM - Family physician unknown Александр Cleaning DO ~ DATE OF SERVICE: 04/17/2021 INPATIENT PSYCHIATRIC DISCHARGE SUMMARY ATTENDING PSYCHIATRIST: Александр Cleaning DO GENERAL UTILITY MAINTENANCE REPAIRER: Marj Louis MD DISCHARGE DIAGNOSES: Major neurocognitive disorder, unspecified etiology with behavioral disturbance, possible Parkinson's disease. ADDITIONAL MEDICAL COMORBIDITIES: Hypertension, acute on chronic renal failure, dehydration, history of recent subarachnoid hemorrhage, CT head negative, history of recent MRSA, UTI. The patient will be no code at the [facility] in [place], [place]. Psychiatric and medical care to be provided by receiving facility. 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 MiraLax 17 g oral daily for bowel motility, Protonix 40 mg oral daily for GERD, nystatin, triamcinolone cream to apply twice daily to scrotal perineal area for 5 more days for rash, then reevaluate by doctor. He is on a regular diet. He needs full assistance with ADLs. Wound care instructions were provided for a sacral area wound, z guard applied b.i.d., turn every 2 hours, daily skin checks. LABORATORY DATA: Significant laboratories from this admission: Hematology: Hemoglobin and hematocrit 13.9 and 41.0, white count 6.3, platelet count 246 on 04/03. Chemistries most recently from 04/12, sodium 145, potassium 4.3, chloride 108, bicarbonate 27, anion gap 10, BUN 31, creatinine 1.04, estimated GFR 48, glucose 114. Estimated average glucose 134. Hemoglobin A1c 6.3, calcium 8.7, phosphorus 3.5, magnesium 2.2, total bilirubin 0.9, AST 38, ALT 30, alkaline phosphatase 109, total protein 7.5, albumin 3.4. Triglycerides 192, total cholesterol 196, LDL 127, HDL 31. B12 level 462. Folate 10.5. TSH 1.889. Urinalysis was clear 03/31. Toxicology negative 03/31. COVID-19 serology was negative on 03/31. REASON FOR ADMISSION: On 03/31, an 86-year-old male with dementia, history of Parkinson's disease, history of recent subarachnoid hemorrhage around 0701. He came from [facility] in [place], [place]. He had a [facility] [address] [place] [address] DISCHARGE SUMMARY Name: ROBERTA PORRAS Room #: 517-[facility]#: [id number] Admission: 03/31/21 Attend Phys: Blossom Franks MD Discharge: 04/17/21 Date of : 33 Report #: [id number] subarachnoid hemorrhage earlier in March, was sent out to [facility], sent back to [facility] which is by Yarely Akinss before [facility]. The patient had some aggressive behaviors. They were unable to place him in a nursing facility. HOSPITAL COURSE: The patient was admitted to the Geriatric Psychiatry Unit. The patient's carbidopa/levodopa was discontinued due to questionable benefit. The patient's Seroquel was titrated given the history of Parkinson's disease. We were careful with the dose. I had to had him on Seroquel 3 times a day, but due to some excess sedation, I cut it back to twice a day. The patient required a higher level of care and fortunately, we were able to place the patient in [place], [place], where his daughter lives. The patient on day of discharge was difficult to interview. He could stay at a few words, but does not make much sense. PHYSICAL EXAMINATION: VITAL SIGNS: Temperature 35.8, pulse 76, respirations 17, BP 150/80, O2 sat 97%. MUSCULOSKELETAL: In Briseida chair, comfortable posture, little bit on the sleepy side. MENTAL STATUS EXAMINATION: Well-developed, ill-appearing male, appearing stated age. Attention, concentration very limited. Speech, slow and soft. Thought process really nonlinear. Thought content both fair poverty of thought and very difficult time understanding him and did not appear in any pain or distress. mood/affect- constricted, congruent No self-injurious behavior to himself or others. Did not appear to be responding to auditory, visual, or tactile hallucinations. Memory known to be impaired. Insight is impaired, judgment is impaired. Fund of knowledge well below average. Prognosis for this patient is guarded to poor given advanced dementia, age of 86, medical comorbidities. <ELECTRONICALLY SIGNED> By: Александр Cleaning DO 04/18/212031 [id number] 03 Александр Cleaning DO /nt
== END 2021-04-17 09:30 | DRG 57 ==
LOC: SBH 14:55
PROVIDERS: Nurse Practitioner; Nurse Practitioner Family; ADMIT Psychiatry & Neurology Psychiatry; ATTEND Psychiatry & Neurology Psychiatry
DX: G20 Parkinson's disease (principal); F02.81 Dementia in other diseases classified elsewhere, unspecified severity, with behavioral disturbance; N17.9 Acute kidney failure, unspecified; N18.9 Chronic kidney disease, unspecified; I12.9 Hypertensive chronic kidney disease with stage 1 through stage 4 chronic kidney disease, or unspecified chronic kidney disease; R53.81 Other malaise; E86.0 Dehydration; F63.9 Impulse disorder, unspecified; K21.9 Gastro-esophageal reflux disease without esophagitis; G30.9 Alzheimer's disease, unspecified; E87.6 Hypokalemia; L89.156 Pressure-induced deep tissue damage of sacral region; Z86.14 Personal history of Methicillin resistant Staphylococcus aureus infection; Z87.440 Personal history of urinary (tract) infections; Z79.899 Other long term (current) drug therapy
CPT/HCPCS: 10880

== ENCOUNTER 2021-03-31 15:52 | Emergency (ER) | payer OTHER, BC ==
[~2021-03-31] VITALS: Ht 188 cm; Wt 79.4 kg
--- NOTE | ~2021-03-31 | EMS ---
[facility] [address] [place] [address] EMS Patient Care Report Name: ROBERTA PORRAS Room #: DEP AKHIL Medina#: [id number] Admission: 03/31/21 Attend Phys: Discharge: 03/31/21 Date of : 34 Report #: [id number] THIS REPORT FOR: //name// Report Transmitted: 04/03/2021 13:20 EMS Care Summary [place], [place]/[facility] Incident [id number] @ 03/31/2021 15:03 Incident Location [address] [place] [address] Patient ROBERTA PORRAS Male, 86 Years 1935 Patient Address Patient History Other,Dementia,Parkinson's Disease,Chronic Kidney Disease, Patient Allergies No known allergies, Chief Complaint NO COMPLAINT Disposition Transported No Lights/[place] Dispatch Reason Airmedical Transport Transported To [facility] Narrative [facility] 9 WAS DISPATCHED TO A 86 YEAR OLD MALE ON AN AIRCRAFT TRANSFER. EMS DONNED GLOVES AND FACE MASKS AND MADE PT CONTACT WITH THE FLIGHT CREW. FLIGHT CREW STATED THE PT WAS BEING TRANSFERRED TO [facility] FOR A GERIATRIC PSYCH EVAL. PT WAS ASSISTED ONTO THE COT INTO A POSITION OF COMFORT AND WAS SECURED VIA 2 SEAT BELTS. PT WAS TRANSPORTED TO AND WAS LOADED INTO THE AMBULANCE. [facility] WAS THE TRANSPORTING UNIT. ALL PT CARE WAS PERFORMED BY THE FLIGHT CREW. PT WAS TRANSPORTED TO [facility] PER PROTOCOL WITH NO CHANGES EN ROUTE. PT WAS TAKEN TO A HALLWAY BED WHERE TRANSPORT REPORT WAS GIVEN TO THE RECEIVING STAFF. ER NURSE SIGNED FOR TRANSFER [facility] [address] [place] [address] EMS Patient Care Report Name: ROBERTA PORRAS Room #: DEP Adam#: [id number] Admission: 03/31/21 Attend Phys: Discharge: 03/31/21 Date of : 34 Report #: [id number] OF CARE AND FOR THE PT DUE TO HIS ALTERED MENTAL STATUS. EMS WENT BACK INTO SERVICE. Initial Vitals @15:24P: 91,R: 20,BP: 147/98,Pain: 0/10,GCS: 13,Glucose: 119,SpO2: 95,Revised Trauma: 12, @15:35P: 90,R: 20,BP: 139/82,Pain: 0/10,GCS: 14,SpO2: 95,Revised Trauma: 12, Assessments @15:14MENTAL:Confused,SKIN:No Abnormalities,HEENT:Head/Face: No Abnormalities,Eyes: No Abnormalities,Neck/Airway: No Abnormalities,LUNG SOUNDS:General: No Abnormalities,Left Upper: No Abnormalities,Right Upper: No Abnormalities,Left Lower: No Abnormalities,Right Lower: No Abnormalities,ABDOMEN:General: No Abnormalities,Left Upper: No Abnormalities,Right Upper: No Abnormalities,Left Lower: No Abnormalities,Right Lower: No Abnormalities,PELVIS//GI:No Abnormalities,EXTREMITIES:Left Arm: No Abnormalities,Right Arm: No Abnormalities,Left Leg: No Abnormalities,Right Leg: No Abnormalities,PULSE:Radial: 2+ Normal,NEURO:No Abnormalities,@15:33 Impression Altered Mental Status Procedures @15:14ALS AssessmentResponse: UnchangedSucceeded Timeline 13:49,Call Received 13:49,Dispatch Notified 15:03,Dispatched 15:03,En Route 15:12,On Scene 15:14,At Patient 15:14,ALS Assessment,Response: UnchangedSucceeded, 15:19,Depart Scene 15:24,BP: 147/98 M,PULSE: 91,RR: 20 R,SPO2: 95 Ox,ETCO2: ,B,PAIN: 0,GCS: 13, 15:35,BP: 139/82 M,PULSE: 90,RR: 20 R,SPO2: 95 Ox,ETCO2: ,BG: ,PAIN: 0,GCS: 14, 15:48,At Destination 16:10,Call Closed Disclaimer v1.1 Copyright 2020 [employer] This EMS Care Summary contains data elements from the applicable legal record (which may be displayed differently). It is designed to provide pertinent information for the following purposes: continuity of care, clinical quality, and state data reporting. The complete legal record is available to ED staff [address] [address] EMS Patient Care Report Name: ROBERTA PORRAS Room #: DEP AKHIL Medina#: [id number] Admission: 03/31/21 Attend Phys: Discharge: 03/31/21 Date of : 34 Report #: [id number] and administrators of the receiving hospital in [facility]'s Patient Tracker. All data is provided "as is."
[2021-03-31] MEDS ORDERED: CARBIDOPA-LEVO1 EAC2 PO (16:42)
[2021-03-31] MEDS ORDERED: BUSPIRONE HCL5 MG PO (16:42)
[2021-03-31 16:43] LABS: HEMATOCRIT 43.9 % (42.0-52.0); MCH 29.7 pg (26.0-34.0); MCHC 34.1 g/dL (28.0-37.0); MCV 87.3 fL (80.0-100.0); RBC 5.03 mil/uL (4.50-6.00); RDW 13.8 % (10.5-14.5)
[2021-03-31] MEDS ORDERED: HYDROCHLOROTH12.5 M2 PO (16:43)
[2021-03-31] MEDS ORDERED: DIFLUCAN100 MG PO (16:43)
[2021-03-31] MEDS ORDERED: HYDROXYZINE HCL25 M2 PO (16:44)
[2021-03-31] MEDS ORDERED: NYSTATIN1000000 UN TOP (16:44)
[2021-03-31] MEDS ORDERED: REQUIP 0.25 M0.25 MG PO (16:45)
[2021-03-31 16:53] LABS: CALCIUM 8.7 mg/dL (8.5-10.1); POTASSIUM 3.8 mmol/L (3.5-5.1)
[2021-03-31 16:59] LABS: ALBUMIN 3.5 g/dL (3.4-5.0); TOTAL BILIRUBIN 0.7 mg/dL (0.2-1.0); TOTAL PROTEIN 7.7 g/dL (6.4-8.2)
[2021-03-31 18:17] LABS: AMP/METHAMP Negative (Negative); BARBITURATES Negative (Negative); BENZODIAZEPINES Negative (Negative); COCAINE Negative (Negative); METHADONE Negative (Negative); OPIATES Negative (Negative); PCP Negative (Negative)
[2021-03-31 20:41] LABS: URINE BILIRUBIN NEGATIVE (Negative); URINE BLOOD NEGATIVE (Negative); URINE CLARITY CLEAR; URINE COLOR YELLOW; URINE GLUCOSE-RANDOM* NEGATIVE (Negative); URINE KETONES NEGATIVE (Negative); URINE LEUKOCYTES-REFLEX NEGATIVE (Negative); URINE NITRITE-REFLEX NEGATIVE (Negative); URINE PROTEIN (DIPSTICK) NEGATIVE (Negative); URINE UROBILINOGEN 0.2 E.U./dl (0.2-1.0)
[2021-03-31 22:21] VITALS: BP 127/67
== END 2021-03-31 22:49 ==
LOC: ER 15:52
PROVIDERS: Nurse Practitioner Family
DX: F03.91 Unspecified dementia, unspecified severity, with behavioral disturbance (principal); I12.9 Hypertensive chronic kidney disease with stage 1 through stage 4 chronic kidney disease, or unspecified chronic kidney disease; N18.9 Chronic kidney disease, unspecified; Z20.822 Contact with and (suspected) exposure to COVID-19; Z79.899 Other long term (current) drug therapy